=== PATIENT | female | born 1995 | race Caucasian/White ===

== ENCOUNTER 2017-08-16 11:50 | Emergency (ER) | payer SELFPAY ==
[2017-08-16] MEDS ORDERED: Sodium Chloride 0.9% 2.5 ML Syringe FLUSH PRN (12:14)
[2017-08-16] MEDS ORDERED: Sodium Chloride 0.9% 10 ML Syringe FLUSH PRN (12:14)
--- NOTE | 2017-08-16 12:18 | EDM.PDOC ---
ED HPI GENERAL MEDICAL PROBLEM - General Chief Complaint: General Stated Complaint: LIGHT HEADED AND NASSUE Time Seen by Provider: 08/16/17 11:56 - History of Present Illness INITIAL COMMENTS - FREE TEXT/NARRATIVE: HISTORY AND PHYSICAL: History of present illness: The patient is a 22-year-old female who presents with a three-day history of lightheadedness generalized weakness nausea near syncope symptoms but has not passed out or blackout. The patient says she has chronic headaches, getting a headache every day on the left side of her head which resolves when she goes to sleep and evolves as the day progresses. The patient denies any recent head trauma and has no neck or back pain no urinary complaints is that she gets regular periods. She does tell me that her period is very heavy she's never been told that she is anemic. The patient has no visual changes or blurred vision but she has not had an eye exam in 5 years. Patient says the symptoms have been ongoing, or lightheadedness generalized weakness and nausea, for the last 3 days but the headaches have been long-standing for several years. Patient only uses Tylenol for pain and says she does not like taking medications. She is eating and drinking normally and says that she smokes cigarettes and does drink alcohol, 1 drink per night. The patient denies any focal weakness in her extremities but when she feels the lightheadedness she feels the generalized weakness without any focal changes. Currently in the ED the patient says her headache is very dull and not very strong. Patient says that she does play games on her cell phone but does not have a lot of screen time on the computer. Review of systems: As per history of present illness and below otherwise all systems reviewed and negative. Past medical history: As per history of present illness and as reviewed below otherwise noncontributory. Surgical history: As per history of present illness and as reviewed below otherwise noncontributory. Social history: No reported history of drug or alcohol abuse. Family history: As per history of present illness and as reviewed below otherwise noncontributory. Physical exam: Gen.: Well-developed well-nourished female who is nontoxic and speaking clearly and easily. She relates in the ED without distress. Vital signs have been noted by me. HEENT: Atraumatic, normocephalic, pupils reactive, negative for conjunctival pallor or scleral icterus, mucous membranes moist, throat clear, neck supple, nontender, trachea midline. Lungs: Clear to auscultation, breath sounds equal bilaterally, chest nontender. Heart: S1S2, regular rate and rhythm no overt murmurs Abdomen: Soft, nondistended, nontender. Negative for masses or hepatosplenomegaly. Negative for costovertebral tenderness. Pelvis: Stable nontender. Genitourinary: Deferred. Rectal: Deferred. Extremities: Atraumatic, negative for cords or calf pain. Neurovascular unremarkable. Neuro: Awake, alert, oriented. Cranial nerves II through XII unremarkable. Cerebellum unremarkable. Motor and sensory unremarkable throughout. Exam nonfocal. Diagnostics: EKG orthostatic vitals UA UCG visual acuity CBC CMP troponin TSH CT scan of the head Therapeutics: The patient and are aware of all testing results and the negative workup. We have proceeded to get her a follow-up appointment in the clinic this Saturday at 3:15 for further evaluation and care and I've advised the patient to hydrate rest eat healthfully and to try to journal her symptoms so that we can decide what the next steps will be. I've advised her on reasons to return to the ED. Impression: Lightheadedness/generalized weakness and nausea History of chronic headaches stable Definitive disposition and diagnosis as appropriate pending reevaluation and review of above. - Related Data Allergies Allergy/AdvReac Type Severity Reaction Status Date / Time No Known Allergies Allergy Verified 08/16/17 12:01 Home Meds: Home Meds . [No Known Home Meds] 08/16/17 [History] Past Medical History - Past Health History Medical/Surgical History: Denies Medical/Surgical History - Infectious Disease History Infectious Disease History: Reports: Chicken Pox Social & Family History - Family History Family Medical History: Noncontributory - Tobacco Use Smoking Status *Q: Never Smoker - Recreational Drug Use Recreational Drug Use: No ED ROS GENERAL - Review of Systems Review Of Systems: ROS reveals no pertinent complaints other than HPI. ED EXAM, GENERAL - Physical Exam Exam: See Below (See dictation) Course - Vital Signs Last Recorded V/S: Last Vital Signs Temp 36.5 C 08/16/17 11:59 Pulse 86 08/16/17 11:59 Resp 16 08/16/17 11:59 BP 121/70 08/16/17 11:59 Pulse Ox 97 08/16/17 11:59 Orthostatic Blood Pressure [ 102/70 Standing] Orthostatic Blood Pressure [ 116/73 Sitting] Orthostatic Blood Pressure [ 115/70 Supine] - Orders/Labs/Meds Orders: Active Orders 24 hr Category Date Time Status EKG Documentation Completion [RC] STAT Care 08/16/17 12:14 Active Orthostatic Vital Signs [RC] ASDIRECTED Care 08/16/17 11:54 Active Sodium Chloride 0.9% [Saline Flush] Med 08/16/17 12:14 Active 10 ml FLUSH ASDIRECTED PRN Sodium Chloride 0.9% [Saline Flush] Med 08/16/17 12:14 Active 2.5 ml FLUSH ASDIRECTED PRN Saline Lock Insert [OM.PC] Stat Oth 08/16/17 12:14 Ordered Medication Orders Sodium Chloride (Saline Flush) 10 ml FLUSH ASDIRECTED PRN PRN Reason: Keep Vein Open Last Admin: 08/16/17 12:35 Dose: 10 ml Sodium Chloride (Saline Flush) 2.5 ml FLUSH ASDIRECTED PRN PRN Reason: Keep Vein Open Last Admin: 08/16/17 12:35 Dose: 2.5 ml Labs: Laboratory Tests 08/16/17 08/16/17 08/16/17 Range/Units 12:09 12:09 12:33 WBC 9.19 (4.0-11.0) K/uL RBC 5.15 (4.30-5.90) M/uL Hgb 14.9 (12.0-16.0) g/dL Hct 43.9 (36.0-46.0) % MCV 85.2 (80.0-98.0) fL MCH 28.9 (27.0-32.0) pg MCHC 33.9 (31.0-37.0) g/dL RDW Std Deviation 42.5 (28.0-62.0) fl RDW Coeff of [place] 14 (11.0-15.0) % Plt Count 251 (150-400) K/uL MPV 12.00 (7.40-12.00) fL Neut % (Auto) 63.2 (48.0-80.0) % Lymph % (Auto) 27.4 (16.0-40.0) % [place] % (Auto) 5.9 (0.0-15.0) % Eos % (Auto) 3.3 (0.0-7.0) % Baso % (Auto) 0.2 (0.0-1.5) % Neut # (Auto) 5.8 H (1.4-5.7) K/uL Lymph # (Auto) 2.5 H (0.6-2.4) K/uL [place] # (Auto) 0.5 (0.0-0.8) K/uL Eos # (Auto) 0.3 (0.0-0.7) K/uL Baso # (Auto) 0.0 (0.0-0.1) K/uL Nucleated RBC % 0.0 /100WBC Nucleated RBCs # 0 K/uL Sodium (136-146) mmol/L Potassium (3.5-5.1) mmol/L Chloride (98-110) mmol/L Carbon Dioxide (21-31) mmol/L BUN (6.0-23.0) mg/dL Creatinine (0.6-1.5) mg/dL Est Cr Clr Drug Dosing mL/min Estimated GFR (MDRD) ml/min Glucose (60-110) mg/dL Calcium (8.8-10.8) mg/dL Total Bilirubin (0.1-1.5) mg/dL AST (5-40) IU/L ALT (8-54) IU/L Alkaline Phosphatase (40-150) Troponin I (0.0-0.29) NG/ML Total Protein (6.0-8.0) g/dL Albumin (3.5-5.0) g/dL Globulin (2.0-3.5) g/dL Albumin/Globulin Ratio (1.3-2.8) TSH 3rd Generation (0.47-5.0) uIU/mL Urine Color YELLOW Urine Appearance CLEAR Urine pH 6.5 (5.0-8.0) Ur Specific [place] 1.010 (1.001-1.035) Urine Protein NEGATIVE (NEGATIVE) mg/dL Urine Glucose (UA) NEGATIVE (NEGATIVE) mg/dL Urine Ketones NEGATIVE (NEGATIVE) mg/dL Urine Occult Blood NEGATIVE (NEGATIVE) Urine Nitrite NEGATIVE (NEGATIVE) Urine Bilirubin NEGATIVE (NEGATIVE) Urine Urobilinogen 0.2 (<2.0) EU/dL Ur Leukocyte Esterase NEGATIVE (NEGATIVE) Urine RBC 0-1 (0-2/HPF) Urine WBC 0-1 (0-5/HPF) Ur Epithelial Cells FEW (NONE-FEW) Urine Bacteria RARE (NEGATIVE) Urine HCG, Qual NEGATIVE (NEGATIVE) 08/16/17 Range/Units 12:33 WBC (4.0-11.0) K/uL RBC (4.30-5.90) M/uL Hgb (12.0-16.0) g/dL Hct (36.0-46.0) % MCV (80.0-98.0) fL MCH (27.0-32.0) pg MCHC (31.0-37.0) g/dL RDW Std Deviation (28.0-62.0) fl RDW Coeff of [place] (11.0-15.0) % Plt Count (150-400) K/uL MPV (7.40-12.00) fL Neut % (Auto) (48.0-80.0) % Lymph % (Auto) (16.0-40.0) % [place] % (Auto) (0.0-15.0) % Eos % (Auto) (0.0-7.0) % Baso % (Auto) (0.0-1.5) % Neut # (Auto) (1.4-5.7) K/uL Lymph # (Auto) (0.6-2.4) K/uL [place] # (Auto) (0.0-0.8) K/uL Eos # (Auto) (0.0-0.7) K/uL Baso # (Auto) (0.0-0.1) K/uL Nucleated RBC % /100WBC Nucleated RBCs # K/uL Sodium 138 (136-146) mmol/L Potassium 4.1 (3.5-5.1) mmol/L Chloride 108 (98-110) mmol/L Carbon Dioxide 22 (21-31) mmol/L BUN 10 (6.0-23.0) mg/dL Creatinine 0.7 (0.6-1.5) mg/dL Est Cr Clr Drug Dosing 113.43 mL/min Estimated GFR (MDRD) > 60.0 ml/min Glucose 94 (60-110) mg/dL Calcium 9.4 (8.8-10.8) mg/dL Total Bilirubin 0.3 (0.1-1.5) mg/dL AST 16 (5-40) IU/L ALT 9 (8-54) IU/L Alkaline Phosphatase 47 (40-150) Troponin I < 0.10 (0.0-0.29) NG/ML Total Protein 8.0 (6.0-8.0) g/dL Albumin 4.6 (3.5-5.0) g/dL Globulin 3.4 (2.0-3.5) g/dL Albumin/Globulin Ratio 1.4 (1.3-2.8) TSH 3rd Generation 0.60 (0.47-5.0) uIU/mL Urine Color Urine Appearance Urine pH (5.0-8.0) Ur Specific [place] (1.001-1.035) Urine Protein (NEGATIVE) mg/dL Urine Glucose (UA) (NEGATIVE) mg/dL Urine Ketones (NEGATIVE) mg/dL Urine Occult Blood (NEGATIVE) Urine Nitrite (NEGATIVE) Urine Bilirubin (NEGATIVE) Urine Urobilinogen (<2.0) EU/dL Ur Leukocyte Esterase (NEGATIVE) Urine RBC (0-2/HPF) Urine WBC (0-5/HPF) Ur Epithelial Cells (NONE-FEW) Urine Bacteria (NEGATIVE) Urine HCG, Qual (NEGATIVE) Meds: Medications Generic Name Dose Route Start Last Admin Trade Name Freq PRN Reason Stop Dose Admin Sodium Chloride 10 ml 08/16/17 12:14 08/16/17 12:35 Saline Flush FLUSH 10 ml ASDIRECTED PRN Administration Keep Vein Open Sodium Chloride 2.5 ml 08/16/17 12:14 08/16/17 12:35 Saline Flush FLUSH 2.5 ml ASDIRECTED PRN Administration Keep Vein Open Departure - Departure Time of Disposition: 14:02 Disposition: Home, Self-Care 01 Condition: Good Clinical Impression: Generalized weakness, Lightheadedness - Discharge Information Referrals: PCP,None [Primary Care Provider] - Forms: ED Department Discharge Additional Instructions: The following information is given to patients seen in the emergency department who are being discharged to home. This information is to outline your options for follow-up care. We provide all patients seen in our emergency department with a follow-up referral. The need for follow-up, as well as the timing and circumstances, are variable depending upon the specifics of your emergency department visit. If you don't have a primary care physician on staff, we will provide you with a referral. We always advise you to contact your personal physician following an emergency department visit to inform them of the circumstance of the visit and for follow-up with them and/or the need for any referrals to a consulting specialist. The emergency department will also refer you to a specialist when appropriate. This referral assures that you have the opportunity for followup care with a specialist. All of these measure are taken in an effort to provide you with optimal care, which includes your followup. Under all circumstances we always encourage you to contact your private physician who remains a resource for coordinating your care. When calling for followup care, please make the office aware that this follow-up is from your recent emergency room visit. If for any reason you are refused follow-up, please contact the [facility] emergency department at and ask to speak to the emergency department charge nurse. [facility] Primary care- [place] [address] Please keep your appointment in our clinic this August 19 at 3:15 PM with Pennie Pereyra. Please show up 10-15 minutes before the appointment to do registration tasks. Please push hydration and rest and return to ER as needed and as discussed. Please start journaling your symptoms as we discussed - My Orders Last 24 Hours: My Active Orders 08/16/17 11:54 Orthostatic Vital Signs [RC] ASDIRECTED 08/16/17 12:14 EKG Documentation Completion [RC] STAT Sodium Chloride 0.9% [Saline Flush] 10 ml FLUSH ASDIRECTED PRN Sodium Chloride 0.9% [Saline Flush] 2.5 ml FLUSH ASDIRECTED PRN Saline Lock Insert [OM.PC] Stat - Assessment/Plan Last 24 Hours: My Active Orders 08/16/17 11:54 Orthostatic Vital Signs [RC] ASDIRECTED 08/16/17 12:14 EKG Documentation Completion [RC] STAT Sodium Chloride 0.9% [Saline Flush] 10 ml FLUSH ASDIRECTED PRN Sodium Chloride 0.9% [Saline Flush] 2.5 ml FLUSH ASDIRECTED PRN Saline Lock Insert [OM.PC] Stat
[2017-08-16 13:03] LABS: CHLORIDE,CL 108 mmol/L (98-110); SODIUM,NA 138 mmol/L (136-146)
--- NOTE | 2017-08-16 13:12 | CT ---
EXAMINATION: Non contrast CT head. Coronal and sagittal reformats. HISTORY: Pain FINDINGS: No evidence of intra or extra axial hemorrhage, mass, midline shift, hydrocephalus or edema. No hypoattenuation changes in the major vascular territories to suggest acute infarct. No abnormal intracranial calcifications are detected. No evidence of substantial vascular calcificat ions. Paranasal sinuses and mastoid air cells are well aerated without substantial findings. The orbits an d globes are symmetric. Pituitary fossa appears unremarkable. Calvarium is intact. No evidence of skull fracture. IMPRESSION: No acute intracranial findings.
== END 2017-08-16 14:10 | disposition home or self-care (01) ==
LOC: MW.ED 11:50
DX: R42 Dizziness and giddiness (principal); R53.1 Weakness
CPT/HCPCS: 70450; 70450-26; 80053; 81001; 81025; 84443; 84484; 85025; 93005; 99283; 99284-25

== ENCOUNTER 2018-04-27 16:18 | Emergency (ER) | payer BC ==
--- NOTE | 2018-04-27 16:30 | EDM.PDOC ---
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 She states that her last menstrual period was approximately 2 or 3 months ago, which was irregular. She took 3 home tests yesterday, all of which were positive. This morning she woke up with abdominal cramping, low back pain and light vaginal spotting. States she just "feel sick" with nausea. She denies any fever, chills, chest pain, shortness of breath or cough. She denies any vomiting, diarrhea, constipation or dysuria. She has a history of miscarriages early in x 4 Review of systems: As per history of present illness and below otherwise all systems reviewed and negative. Past medical history: As per history of present illness and as reviewed below otherwise noncontributory. Surgical history: As per history of present illness and as reviewed below otherwise noncontributory. Social history: No reported history of drug or alcohol abuse. Family history: As per history of present illness and as reviewed below otherwise noncontributory. Physical exam: General: Well-developed and well-nourished 22-year-old female. Alert and oriented. Nontoxic appearing and in no acute distress. HEENT: Atraumatic, normocephalic, pupils equal and reactive bilaterally, negative for conjunctival pallor or scleral icterus, mucous membranes moist, throat clear, neck supple, nontender, trachea midline. No drooling or trismus noted. No meningeal signs Lungs: Clear to auscultation, breath sounds equal bilaterally, chest nontender. Heart: S1S2, regular rate and rhythm without overt murmur Abdomen: Soft, nondistended, suprapubic tenderness with palpation. Negative for masses or hepatosplenomegaly. Negative for costovertebral tenderness. Pelvis: Stable nontender. Genitourinary: Deferred. Rectal: Deferred. Skin: Intact, warm, dry. No lesions or rashes noted. Extremities: Atraumatic, negative for cords or calf pain. Neurovascular unremarkable. Neuro: Awake, alert, oriented. Cranial nerves II through XII unremarkable. Cerebellum unremarkable. Motor and sensory unremarkable throughout. Exam nonfocal. Notes: Ultrasound shows a small intrauterine gestational sac. No yolk sac or pole noted. It's recommended for follow-up with ultrasound to assess viability. Her quantitative hCG is 2908 at this time. I did share this information with her and encouraged her to have labs redrawn on 04/29/18 to reassess her quantitative hCG. She will follow up with Nena Rizvi or Kiki Rayo for further evaluation and management. We discussed supportive care measures. Signs and symptoms that would prompt her to return to the emergency room. She voices understanding and is agreeable to plan of care. She declines the need for Zofran at this time. Patient discharged to home with an outpatient lab order. Diagnostics: CBC, CMP, quantitative hCG, AB/RH, first trimester ultrasound Therapeutics: N/A Impression: Threatened miscarriage Plan: 1. Pelvic rest (no tampons, sexual intercourse, etc...) until cleared by your OBGYN 2. Please have labs redrawn as an outpatient on 04/29/18 (Quantitative HCG). Today's value was 2,908. 3. Tylenol as needed for pain management. 4. Call to set up an appointment for further evaluation and management. You can try to see Kiki Rayo or Nena Rizvi, or any OBGYN of your choice. Return to the ED as needed and as discussed. Definitive disposition and diagnosis as appropriate pending reevaluation and review of above. Onset: Today Duration: Hour(s): Location: Reports: Pelvis Left Lower Abdomen Pain Score (Numeric/FACES): 6 - Related Data Allergies Allergy/AdvReac Type Severity Reaction Status Date / Time No Known Allergies Allergy Verified 04/27/18 16:47 Home Meds: Home Meds . [No Known Home Meds] 08/16/17 [History] Past Medical History - Past Health History Medical/Surgical History: Denies Medical/Surgical History - Infectious Disease History Infectious Disease History: Reports: Chicken Pox Social & Family History - Family History Family Medical History: Noncontributory ED ROS GENERAL - Review of Systems Review Of Systems: See Below ED EXAM - Physical Exam Exam: See Below (See dictation) Course - Vital Signs Last Recorded V/S: Last Vital Signs Temp 98.3 F 04/27/18 16:34 Pulse 102 H 04/27/18 16:34 Resp 18 04/27/18 16:34 BP 121/79 04/27/18 16:34 Pulse Ox 98 04/27/18 16:34 - Orders/Labs/Meds Orders: Active Orders 24 hr Category Date Time Status OB 1st Tri Sgl 1st Gest [US] Stat Exams 04/27/18 16:28 Taken UA W/MICROSCOPIC [URIN] Stat Lab 04/27/18 16:46 Ordered Labs: Laboratory Tests 04/27/18 04/27/18 04/27/18 Range/Units 16:44 16:44 16:44 WBC 8.51 (4.0-11.0) K/uL RBC 4.84 (4.30-5.90) M/uL Hgb 14.1 (12.0-16.0) g/dL Hct 40.7 (36.0-46.0) % MCV 84.1 (80.0-98.0) fL MCH 29.1 (27.0-32.0) pg MCHC 34.6 (31.0-37.0) g/dL RDW Std Deviation 38.5 (28.0-62.0) fl RDW Coeff of [place] 13 (11.0-15.0) % Plt Count 209 (150-400) K/uL MPV 11.50 (7.40-12.00) fL Neut % (Auto) 59.7 (48.0-80.0) % Lymph % (Auto) 29.5 (16.0-40.0) % [place] % (Auto) 8.1 (0.0-15.0) % Eos % (Auto) 2.6 (0.0-7.0) % Baso % (Auto) 0.1 (0.0-1.5) % Neut # (Auto) 5.1 (1.4-5.7) K/uL Lymph # (Auto) 2.5 H (0.6-2.4) K/uL [place] # (Auto) 0.7 (0.0-0.8) K/uL Eos # (Auto) 0.2 (0.0-0.7) K/uL Baso # (Auto) 0.0 (0.0-0.1) K/uL Nucleated RBC % 0.0 /100WBC Nucleated RBCs # 0 K/uL HCG, Quant 2908.0 mIU/mL Urine Color Urine Appearance Urine pH (5.0-8.0) Ur Specific [place] (1.001-1.035) Urine Protein (NEGATIVE) mg/dL Urine Glucose (UA) (NEGATIVE) mg/dL Urine Ketones (NEGATIVE) mg/dL Urine Occult Blood (NEGATIVE) Urine Nitrite (NEGATIVE) Urine Bilirubin (NEGATIVE) Urine Urobilinogen (<2.0) EU/dL Ur Leukocyte Esterase (NEGATIVE) Urine RBC (0-2/HPF) Urine WBC (0-5/HPF) Ur Epithelial Cells (NONE-FEW) Amorphous Sediment (NEGATIVE) Urine Bacteria (NEGATIVE) Blood Type A POSITIVE 04/27/18 Range/Units 16:46 WBC (4.0-11.0) K/uL RBC (4.30-5.90) M/uL Hgb (12.0-16.0) g/dL Hct (36.0-46.0) % MCV (80.0-98.0) fL MCH (27.0-32.0) pg MCHC (31.0-37.0) g/dL RDW Std Deviation (28.0-62.0) fl RDW Coeff of [place] (11.0-15.0) % Plt Count (150-400) K/uL MPV (7.40-12.00) fL Neut % (Auto) (48.0-80.0) % Lymph % (Auto) (16.0-40.0) % [place] % (Auto) (0.0-15.0) % Eos % (Auto) (0.0-7.0) % Baso % (Auto) (0.0-1.5) % Neut # (Auto) (1.4-5.7) K/uL Lymph # (Auto) (0.6-2.4) K/uL [place] # (Auto) (0.0-0.8) K/uL Eos # (Auto) (0.0-0.7) K/uL Baso # (Auto) (0.0-0.1) K/uL Nucleated RBC % /100WBC Nucleated RBCs # K/uL HCG, Quant mIU/mL Urine Color YELLOW Urine Appearance CLEAR Urine pH 8.0 (5.0-8.0) Ur Specific [place] 1.015 (1.001-1.035) Urine Protein TRACE (NEGATIVE) mg/dL Urine Glucose (UA) NEGATIVE (NEGATIVE) mg/dL Urine Ketones NEGATIVE (NEGATIVE) mg/dL Urine Occult Blood NEGATIVE (NEGATIVE) Urine Nitrite NEGATIVE (NEGATIVE) Urine Bilirubin NEGATIVE (NEGATIVE) Urine Urobilinogen 1.0 (<2.0) EU/dL Ur Leukocyte Esterase NEGATIVE (NEGATIVE) Urine RBC 0-1 (0-2/HPF) Urine WBC 0-1 (0-5/HPF) Ur Epithelial Cells RARE (NONE-FEW) Amorphous Sediment MODERATE (NEGATIVE) Urine Bacteria FEW (NEGATIVE) Blood Type Departure - Departure Time of Disposition: 18:10 Disposition: Home, Self-Care 01 Clinical Impression: Threatened miscarriage in early - Discharge Information Instructions: Vaginal Bleeding During , First Trimester, [id number] Referrals: PCP,None [Primary Care Provider] - Forms: ED Department Discharge Additional Instructions: The following information is given to patients seen in the emergency department who are being discharged to home. This information is to outline your options for follow-up care. We provide all patients seen in our emergency department with a follow-up referral. The need for follow-up, as well as the timing and circumstances, are variable depending upon the specifics of your emergency department visit. If you don't have a primary care physician on staff, we will provide you with a referral. We always advise you to contact your personal physician following an emergency department visit to inform them of the circumstance of the visit and for follow-up with them and/or the need for any referrals to a consulting specialist. The emergency department will also refer you to a specialist when appropriate. This referral assures that you have the opportunity for follow-up care with a specialist. All of these measure are taken in an effort to provide you with optimal care, which includes your follow-up. Under all circumstances we always encourage you to contact your private physician who remains a resource for coordinating your care. When calling for follow-up care, please make the office aware that this follow-up is from your recent emergency room visit. If for any reason you are refused follow-up, please contact the [facility] Emergency Department at and asked to speak to the emergency department charge nurse. [facility] Primary Care - Women's Health [address] [place] [address] [facility] [address] [place] [address] 1. Pelvic rest (no tampons, sexual intercourse, etc...) until cleared by your OBGYN 2. Please have labs redrawn as an outpatient on 04/29/18 (Quantitative HCG). Today's value was 2,908. 3. Tylenol as needed for pain management. 4. Call to set up an appointment for further evaluation and management. You can try to see Kiki Rayo or Nena Rizvi, or any OBGYN of your choice. Return to the ED as needed and as discussed. - My Orders Last 24 Hours: My Active Orders 04/27/18 16:28 OB 1st Tri Sgl 1st Gest [US] Stat 04/27/18 16:46 UA W/MICROSCOPIC [URIN] Stat - Assessment/Plan Last 24 Hours: My Active Orders 04/27/18 16:28 OB 1st Tri Sgl 1st Gest [US] Stat 04/27/18 16:46 UA W/MICROSCOPIC [URIN] Stat
--- NOTE | 2018-04-28 14:28 | US ---
EXAM DATE: 04/27/18 PATIENT'S AGE: 22 Patient: AYSHA CLIFFORD Facility: [place], [place] Site . Site : 1995 Study: US Extremity [id number] 5:24:47 PM Ordering Physician: Doctor Boone Final Report: HISTORY: Vaginal bleeding in first-trimester . LMP 03/05/2018. TECHNIQUE: Ultrasound of the pelvis using transvaginal technique. COMPARISON: None. FINDINGS: 7 mm cystic structure with relatively thick echogenic rim located eccentrically within endometrium compatible with a gestational sac. Sac diameter measures 7 mm. No yolk sac or pole. No uterine mass. Right ovary measures 2.3 x 1.7 x 1.6 cm. Normal appearance. Left ovary measures 3.1 x 2 x 2 cm. Normal appearance. No free fluid in the pelvis. IMPRESSION: 1. Small intrauterine gestational sac. No yolk sac or pole. Recommend follow up ultrasound to assess viability. 2. Normal-appearing ovaries. Dictated by Shaan Combs MD @ Apr 27 2018 5:36PM (Electronic Signature) Report Signed by Proxy. [facility]
== END 2018-04-27 18:44 | disposition home or self-care (01) ==
LOC: MW.ED 16:18
DX: O20.0 Threatened abortion (principal)
CPT/HCPCS: 36415; 76801; 76801-26; 81001; 84702; 85025; 86900; 86901; 99284